=== PATIENT | male | born 1970 | race Caucasian/White ===

== ENCOUNTER 2018-06-06 17:28 | Emergency (ER) | payer OTHER ==
[2018-06-06 17:37] VITALS: BMI 33.7
[2018-06-06 17:38] VITALS: TEMP 98.3
--- NOTE | 2018-06-06 17:38 | ED PDOC ---
Arrival/HPI - General Time Seen by Provider: 06/06/18 17:29 Historian: EMS - History of Present Illness Narrative History of Present Illness (Text): 06/06/18 17:38 48 year old male, with questionable past medical history of seizure, presents to the ED via EMS s/p seizure prior to arrival. As per EMS, patient was reported to have a witnessed seizure at work when 911 was immediately called. Upon EMS arrival, patient was found to be in post-ictal state however was able ambulate to the stretcher. Patient reportedly experienced another episode of seizure en rout to the hospital, which lasted for about 30 seconds. Upon arrival to the ED, patient is unresponsive however responds and moves all extremities to painful stimuli. HPI and ROS limited secondary to patient's clinical presentation. Time/Duration: Prior to Arrival Symptom Onset: Gradual Symptom Course: Unchanged Activities at Onset: Light Context: Work Past Medical History - Provider Review Nursing Documentation Reviewed: Yes Family/Social History - Physician Review Nursing Documentation Reviewed: Yes Family/Social History: Unknown Family HX Allergies/Home Meds Allergies/Adverse Reactions: Allergies Unobtainable Allergy (Verified 06/06/18 17:37) Home Medications: Home Meds Medication Instructions Recorded Confirmed Lamotrigine [Lamictal] 200 mg PO BID 06/06/18 06/06/18 Levetiracetam [Keppra] 750 mg PO BID 06/06/18 06/06/18 Topiramate [Topamax] 300 mg PO BID 06/06/18 06/06/18 Review of Systems - Review of Systems Systems not reviewed;Unavailable: Acuity of Condition (Patient unresponsive) Neurological: Seizure Physical Exam Vital Signs Reviewed: Yes Temperature: Afebrile Blood Pressure: Normal Pulse: Tachycardic Respiratory Rate: Normal Pain Distress: None Mental Status: Positive for: Confused, other (Unresponsive) - Systems Exam Head: Present: Atraumatic, Normocephalic Pupils: Present: PERRL Extroacular Muscles: Present: EOMI Conjunctiva: Present: Normal Ears: Present: Normal, NORMAL TM Mouth: Present: Moist Mucous Membranes Pharnyx: Present: Normal. No: ERYTHEMA, EXUDATE Neck: Present: Normal Range of Motion. No: Meningeal Signs, MIDLINE TENDERNESS Respiratory/Chest: Present: Clear to Auscultation, Good Air Exchange. No: Respiratory Distress, Accessory Muscle Use Cardiovascular: Present: Normal S1, S2, Tachycardic. No: Murmurs Back: Present: Normal Inspection. No: CVA Tenderness, Midline Tenderness Upper Extremity: Present: Normal Inspection, Neurovascularly Intact. No: Cyanosis, Edema Lower Extremity: Present: Normal Inspection, Neurovascularly Intact. No: Edema Neurological: Present: Normal Sensory Function (Moves all extremities with pain stimuli), Other (Limited secondary to unresponsive state) Skin: Present: Warm, Dry, Normal Color. No: Rashes Psychiatric: Present: Other (Unresponsive) Medical Decision Making ED Course and Treatment: 06/06/18 17:52 Impression: 48 year old male presents to the ED for evaluation s/p seizure. ?history of seizures, no family bedside. Per EMS pt has medications in backpack. No seizure medications noted in backpack. ?Newonset seizure. No meningeal signs noted. Differential Diagnosis included but are not limited to: -- Seizure Plan: -- CT of Cervical Spine -- CT of Head -- EKG -- Labs -- Ativan -- Keppra -- IV Fluids -- Reassess and disposition Prior Visits: Notes and results from previous visits were reviewed. Progress Notes: 06/06/18 17:45 EKG reviewed, shows Sinus tachycardia at 129 bpm, No STEMI. 06/06/18 17:45 Patient experienced seizure at bedside. Ativan given. 06/06/18 17:[address] Nunez, who is aware and agrees with ED management plan, requests admission and MRI of the brain. 06/06/18 19:54 CT of Cervical Spine reviewed by radiologist, shows: 1. No acute cervical spine abnormality. 2. 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 06/06/18 19:54 CT of Head reviewed by radiologist, shows: No acute intracranial abnormality. No signs of DTs or withdrawal on exam. Etoh mildly elevated earlier. Ativan given earlier. appreciate consult w/ Dr. Chanel: to admit to hospitalist service 06/06/18 21:34 - RAD Interpretation Tube Sizer Operator: Radiologist - EKG Interpretation Interpreted by ED Physician: Yes Type: 12 lead EKG - Scribe Statement The provider has reviewed the documentation as recorded by the Scribe Cordell Torres. All medical record entries made by the Scribe were at my direction and persona lly dictated by me. I have reviewed the chart and agree that the record accurately reflects my personal performance of the history, physical exam, medical decision making, and the department course for this patient. I have also personally directed, reviewed, and agree with the discharge instructions and disposition. Disposition/Present on Arrival - Present on Arrival Any Indicators Present on Arrival: No - Disposition Have Diagnosis and Disposition been Completed?: Yes Diagnosis: Seizure Disposition Time: 20:14 Patient Problems: Current Active Problems Problem Status Onset Seizure Acute Condition: STABLE
[2018-06-06] MEDS ORDERED: Sodium Chloride 0.9% 1,000 ML IV ONE (17:39)
[2018-06-06] MEDS ORDERED: levETIRAcetam 1000mg/100ml NS 100 ML IV ONE (17:46)
[2018-06-06 17:47] LABS: BASO # 0.04 K/mm3 (0.0-2.0); BASO % 0.3 % (0.0-3.0); EOS # 0.1 (0.0-0.7); EOS % 0.9 % (1.5-5.0); HEMOGLOBIN 14.7 g/dL (14.0-18.0); LYMPH # 5.5 (1.2-3.4); LYMPH % 43.2 % (22.0-35.0); MEAN CELL VOLUME 95.9 fl (80.0-105.0); MEAN CORPUSCULAR HEMOGLOBIN 29.9 pg (25.0-35.0); MEAN CORPUSCULAR HGB CONC 31.2 g/dl (31.0-37.0); MEAN PLATELET VOLUME 10.5 fl (7.0-11.0); MONO # 0.8 (0.1-0.6); MONO % 6.1 % (1.0-6.0); RBC 4.91 10^6/uL (3.5-6.1); RED CELL DISTRIBUTION WIDTH 13.7 % (11.5-14.5); WHITE BLOOD COUNT 12.7 10^3/uL (4.5-11.0)
[2018-06-06 18:04] LABS: ALB/GLOB RATIO 1.3 (1.1-1.8); ALBUMIN 5.3 g/dL (3.0-4.8); ALT/SGPT 21 U/L (7-56); AST/SGOT 50 U/L (17-59); BLOOD UREA NITROGEN 14 mg/dL (7-21); CALCIUM 9.5 mg/dL (8.4-10.5); GFR NON-AFRICAN AMERICAN 50
[2018-06-06 18:15] LABS: TROPONIN I < 0.01 ng/mL
[2018-06-06 18:46] LABS: ACETAMINOPHEN < 10.0 ug/ml (10.0-20.0); SALICYLATE 2 mg/dL (2.0-20.0)
--- NOTE | 2018-06-06 18:48 | RAD ---
Date of service: 06/06/2018 HISTORY: seizure COMPARISON: No prior. FINDINGS: LUNGS: The lungs are well inflated. There is mild pulmonary venous congestion. PLEURA: No pleural effusions or pneumothorax. CARDIOVASCULAR: There is mild cardiomegaly. No aortic atherosclerotic calcifications present. OSSEOUS STRUCTURES: Within normal limits for the patient's age. VISUALIZED UPPER ABDOMEN: Normal. OTHER FINDINGS: None. IMPRESSION: No active pulmonary disease. Mild cardiomegaly and pulmonary venous congestion.
[2018-06-06 20:24] LABS: ARTERIAL BLOOD GAS HCO3 13.3 mmol/L (21-28); ARTERIAL BLOOD GAS O2 SAT 97.9 % (95-98); ARTERIAL BLOOD GAS PCO2 27 mm/Hg (35-45); ARTERIAL BLOOD GAS TCO2 14.1 mmol.L (22-28)
--- NOTE | 2018-06-06 20:50 | CP.PCM.HP ---
<Ibrahima Gant - Last Filed: 06/06/18 21:43> History of Present Illness - History of Present Illness History of Present Illness: Ibrahima Gant, PGY1 Medicine H&P for Dr. Chanel cc: "witnessed seizure" Patient is a 48 year old male, with PMHx of seizures who presented to the ED via EMS s/p witnessed seizure prior to arrival. As per EMS, patient was reported to have a witnessed seizure at work via co-worker when 911 was immediately called. Upon arrival to the ED, patient was found to be in post-ictal state. Patient experienced another episode of seizure en rout to the hospital, which lasted for about 30 seconds. Medical team evaluated patient in the ED. Patient is currently awake, alert, and oriented x3. He is still post-ictal and somnolent during interview, however he responds to questions appropriately. He does not remember how long he had the seizure for and no family member or associate was present at bedside to provide further history. Patient denies any recent sick contacts or travel history. He denies any cough, shortness of breath, abdominal pain, nausea, vomiting, diarrhea, fever, chills, headache, fatigue. He said he takes his seizure meds at home and is compliant with them. He did not bite his tongue or notice any loss of bowel or bladder. Patient does not know the name of his PMD. A full 12 point ROS was conducted and unremarkable except as stated above. PMD: unknown [facility] ([place] PMHx: seizures PSHx: denies Meds: lamictal 200mg PO BID, Keppra 750mg PO BID, Topamax 300mg PO BID Allergies: NKDA SocialHx: denies smoking, denies EtOH, denies illicit drug use. Lives in [place] and works in [place]. FamHx: non-contributory Present on Admission - Present on Admission Any Indicators Present on Admission: No Review of Systems - Review of Systems All systems: reviewed and no additional remarkable complaints except (as per HPI.) Past Patient History - Infectious Disease Hx of Infectious Diseases: None - Past Social History Smoking Status: Unknown If Ever Smoked - NEUROLOGICAL Hx Seizures: Yes - PSYCHIATRIC Hx Substance Use: No Meds Allergies/Adverse Reactions: Allergies Allergy/AdvReac Type Severity Reaction Status Date / Time Unobtainable Allergy Verified 06/06/18 17:37 Physical Exam - Constitutional Appears: No Acute Distress Additional comments: Somnolent on exam. - Head Exam Head Exam: ATRAUMATIC, NORMAL INSPECTION, NORMOCEPHALIC - Eye Exam Eye Exam: EOMI, Normal appearance, PERRL - ENT Exam ENT Exam: Mucous Membranes Moist, Normal Exam Additional comments: No evidence of tongue biting. - Neck Exam Neck exam: Positive for: Normal Inspection - Respiratory Exam Respiratory Exam: Clear to Auscultation Bilateral, NORMAL BREATHING PATTERN. absent: Rales, Rhonchi, Wheezes - Cardiovascular Exam Cardiovascular Exam: RRR, +S1, +S2 - GI/Abdominal Exam GI & Abdominal Exam: Normal Bowel Sounds, Soft. absent: Firm, Guarding, Hernia, Organomegaly, Rebound, Tenderness - Extremities Exam Extremities exam: Positive for: normal capillary refill, normal inspection, pedal pulses present - Neurological Exam Neurological exam: Alert, CN II-XII Intact, Oriented x3 - Psychiatric Exam Psychiatric exam: Normal Affect, Normal Mood - Skin Skin Exam: Dry, Intact, Normal Color, Warm Results - Vital Signs Recent Vital Signs: Last Vital Signs Temp 98.3 F 06/06/18 17:28 Pulse 98 H 06/06/18 20:32 Resp 20 06/06/18 20:32 BP 114/67 06/06/18 20:32 Pulse Ox 100 06/06/18 20:32 - Labs Result Diagrams: 06/06/18 17:30 06/06/18 17:30 Labs: Laboratory Results - last 24 hr 06/06/18 06/06/18 06/06/18 17:30 17:30 17:30 WBC 12.7 H RBC 4.91 Hgb 14.7 Hct 47.1 MCV 95.9 MCH 29.9 MCHC 31.2 RDW 13.7 Plt Count 289 MPV 10.5 Neut % (Auto) 49.5 L Lymph % (Auto) 43.2 H Starr % (Auto) 6.1 H Eos % (Auto) 0.9 L Baso % (Auto) 0.3 Lymph # (Auto) 5.5 H Starr # (Auto) 0.8 H Eos # (Auto) 0.1 Baso # (Auto) 0.04 Absolute Neuts (auto) 6.28 pCO2 pO2 HCO3 ABG pH ABG Total CO2 ABG O2 Saturation ABG Base Excess ABG Potassium Glucose Lactate FiO2 Crit Value Called To Crit Value Called By Blood Gas Notified Time Sodium 144 Potassium 4.1 Chloride 108 H Carbon Dioxide 5 L Anion Gap 35 H BUN 14 Creatinine 1.5 Est GFR ( Amer) > 60 Est GFR (Non-Af Amer) 50 Random Glucose 143 H Calcium 9.5 Magnesium 2.7 H Total Bilirubin 0.3 AST 50 ALT 21 Alkaline Phosphatase 86 Troponin I < 0.01 Total Protein 9.3 H Albumin 5.3 H Globulin 4.0 Albumin/Globulin Ratio 1.3 TSH 3rd Generation Arterial Blood Potassium Salicylates Acetaminophen Alcohol, Quantitative 13 H 06/06/18 06/06/18 06/06/18 17:30 17:30 20:16 WBC RBC Hgb Hct MCV MCH MCHC RDW Plt Count MPV Neut % (Auto) Lymph % (Auto) Starr % (Auto) Eos % (Auto) Baso % (Auto) Lymph # (Auto) Starr # (Auto) Eos # (Auto) Baso # (Auto) Absolute Neuts (auto) pCO2 27 L pO2 88.0 HCO3 13.3 L ABG pH 7.30 L ABG Total CO2 14.1 L ABG O2 Saturation 97.9 ABG Base Excess -11.5 L ABG Potassium 4.1 Glucose 99 Lactate 2.4 H FiO2 21.0 Crit Value Called To teletype clerk Crit Value Called By Jj Blood Gas Notified Time 2023 Sodium 139.0 Potassium Chloride 113.0 H Carbon Dioxide Anion Gap BUN Creatinine Est GFR ( Amer) Est GFR (Non-Af Amer) Random Glucose Calcium Magnesium Total Bilirubin AST ALT Alkaline Phosphatase Troponin I Total Protein Albumin Globulin Albumin/Globulin Ratio TSH 3rd Generation 3.64 Arterial Blood Potassium 4.1 Salicylates 2 Acetaminophen < 10.0 L Alcohol, Quantitative Assessment & Plan - Assessment and Plan (Free Text) Assessment: Patient is a 48 year old male with PMHx of seizures who presented to the ED via EMS s/p witnessed seizure prior to arrival. Patient will be admitted to telemetry for seizures. Plan: Seizures -Consider infectious etiology vs non-compliance vs substance abuse -Ativan 1mg IVP q4 prn -Keppra 750 mg IVPB q12 -Nursing swallow eval -Banana bag @ 150 cc/hr x1L; then c/w NS @ 150 cc/hr -seizure and aspiration precautions -Neurochecks -frequent vital signs q4 -CPK level -NPO -ABG -Neurology consulted (Dr. Nunez) -Urine drug screen -EtoH level 13 -Mildly elevated leukocytosis, wbc 12.7, likely reactive. Will repeat labs in morning to determine whether to initiate antibiotics if wbc trends up. -Head CT without contrast: no acute bleed -CT C-spine: no acute abnormality -CXR: no consolidation or infiltrate DVT ppx: scd Diet: NPO Dispo: Monitor patient on telemetry. Further recs from Neuro. Case was discussed and reviewed with Attending Physician, Dr. Chanel. <Lori Chanel - Last Filed: 06/06/18 22:07> Results - Vital Signs Recent Vital Signs: Last Vital Signs Temp 98.3 F 06/06/18 17:28 Pulse 98 H 06/06/18 20:32 Resp 20 06/06/18 20:32 BP 114/67 06/06/18 20:32 Pulse Ox 100 06/06/18 20:32 - Labs Result Diagrams: 06/06/18 17:30 06/06/18 17:30 Labs: Laboratory Results - last 24 hr 06/06/18 06/06/18 06/06/18 17:30 17:30 17:30 WBC 12.7 H RBC 4.91 Hgb 14.7 Hct 47.1 MCV 95.9 MCH 29.9 MCHC 31.2 RDW 13.7 Plt Count 289 MPV 10.5 Neut % (Auto) 49.5 L Lymph % (Auto) 43.2 H Starr % (Auto) 6.1 H Eos % (Auto) 0.9 L Baso % (Auto) 0.3 Lymph # (Auto) 5.5 H Starr # (Auto) 0.8 H Eos # (Auto) 0.1 Baso # (Auto) 0.04 Absolute Neuts (auto) 6.28 pCO2 pO2 HCO3 ABG pH ABG Total CO2 ABG O2 Saturation ABG Base Excess ABG Potassium Glucose Lactate FiO2 Crit Value Called To Crit Value Called By Blood Gas Notified Time Sodium 144 Potassium 4.1 Chloride 108 H Carbon Dioxide 5 L Anion Gap 35 H BUN 14 Creatinine 1.5 Est GFR ( Amer) > 60 Est GFR (Non-Af Amer) 50 Random Glucose 143 H Calcium 9.5 Magnesium 2.7 H Total Bilirubin 0.3 AST 50 ALT 21 Alkaline Phosphatase 86 Total Creatine Kinase Troponin I < 0.01 Total Protein 9.3 H Albumin 5.3 H Globulin 4.0 Albumin/Globulin Ratio 1.3 TSH 3rd Generation Arterial Blood Potassium Salicylates Acetaminophen Alcohol, Quantitative 13 H 06/06/18 06/06/18 06/06/18 17:30 17:30 19:00 WBC RBC Hgb Hct MCV MCH MCHC RDW Plt Count MPV Neut % (Auto) Lymph % (Auto) Starr % (Auto) Eos % (Auto) Baso % (Auto) Lymph # (Auto) Starr # (Auto) Eos # (Auto) Baso # (Auto) Absolute Neuts (auto) pCO2 pO2 HCO3 ABG pH ABG Total CO2 ABG O2 Saturation ABG Base Excess ABG Potassium Glucose Lactate FiO2 Crit Value Called To Crit Value Called By Blood Gas Notified Time Sodium Potassium Chloride Carbon Dioxide Anion Gap BUN Creatinine Est GFR ( Amer) Est GFR (Non-Af Amer) Random Glucose Calcium Magnesium Total Bilirubin AST ALT Alkaline Phosphatase Total Creatine Kinase 236 H Troponin I Total Protein Albumin Globulin Albumin/Globulin Ratio TSH 3rd Generation 3.64 Arterial Blood Potassium Salicylates 2 Acetaminophen < 10.0 L Alcohol, Quantitative 06/06/18 20:16 WBC RBC Hgb Hct MCV MCH MCHC RDW Plt Count MPV Neut % (Auto) Lymph % (Auto) Starr % (Auto) Eos % (Auto) Baso % (Auto) Lymph # (Auto) Starr # (Auto) Eos # (Auto) Baso # (Auto) Absolute Neuts (auto) pCO2 27 L pO2 88.0 HCO3 13.3 L ABG pH 7.30 L ABG Total CO2 14.1 L ABG O2 Saturation 97.9 ABG Base Excess -11.5 L ABG Potassium 4.1 Glucose 99 Lactate 2.4 H FiO2 21.0 Crit Value Called To teletype clerk Crit Value Called By J Blood Gas Notified Time 2023 Sodium 139.0 Potassium Chloride 113.0 H Carbon Dioxide Anion Gap BUN Creatinine Est GFR ( Amer) Est GFR (Non-Af Amer) Random Glucose Calcium Magnesium Total Bilirubin AST ALT Alkaline Phosphatase Total Creatine Kinase Troponin I Total Protein Albumin Globulin Albumin/Globulin Ratio [facility] 3rd Generation Arterial Blood Potassium 4.1 Salicylates Acetaminophen Alcohol, Quantitative Attending/Attestation - Attestation I have personally seen and examined this patient.: Yes I have fully participated in the care of the patient.: Yes I have reviewed all pertinent clinical information: Yes Notes (Text): 06/06/18 22:06 Patient was seen when he was in the bed # 3 in the ER. Medical record was reviewed. Agree with history, physical examination, assessment and plan.
[2018-06-06] MEDS ORDERED: Folic Acid 1 MG, Thiamine 100 MG, Multivitamin (MVI) 10 ML in Dextrose 5% In Water 1,00... IV SCH (21:45)
[2018-06-06 22:44] LABS: CK-MB 1.7 ng/mL (0.0-3.6)
[2018-06-06 23:13] LABS: BARBITURATES, UR NEGATIVE (NEGATIVE); BENZODIAZEPINES, UR NEGATIVE (NEGATIVE); OPIATES, UR NEGATIVE (NEGATIVE); PHENCYCLIDINE, UR NEGATIVE (NEGATIVE)
[2018-06-07 00:27] LABS: VENOUS BLOOD GAS BASE EXCESS -9.6 mmol/L (0.0-2.0); VENOUS BLOOD GAS PO2 62 mm/Hg (30-55); VENOUS BLOOD PH 7.27 (7.32-7.43)
[2018-06-07] MEDS ORDERED: Sodium Chloride 0.9% 1,000 ML IV SCH (04:00)
--- NOTE | 2018-06-07 06:49 | CP.PCM.PN ---
Subjective - Date & Time of Evaluation Date of Evaluation: 06/07/18 Time of Evaluation: 06:49 Objective - Vital Signs/Intake and Output Vital Signs (last 24 hours): Temp Pulse Resp BP Pulse Ox 98.3 F 72 18 134/76 98 06/06/18 17:28 06/07/18 06:44 06/07/18 06:44 06/07/18 06:44 06/07/18 06:44 - Medications Medications: Current Medications Levetiracetam 750 mg/ Sodium (Chloride) 107.5 mls @ 215 mls/hr IVPB Q12 OTONIEL Last Admin: 06/07/18 00:13 Dose: 215 mls/hr Sodium Chloride (Sodium Chloride 0.9%) 1,000 mls @ 150 mls/hr IV .[id number] OTONIEL Last Admin: 06/07/18 06:15 Dose: 150 mls/hr Lorazepam (Ativan) 1 mg IVP Q4 PRN; Protocol PRN Reason: Seizure activity - Labs Labs: 06/06/18 17:30 06/06/18 17:30
[2018-06-07 07:23] VITALS: RESP 20
[2018-06-07 07:46] LABS: HEMOGLOBIN 13.3 g/dL (14.0-18.0); MEAN CELL VOLUME 91.1 fl (80.0-105.0); MEAN CORPUSCULAR HEMOGLOBIN 29.6 pg (25.0-35.0); MEAN CORPUSCULAR HGB CONC 32.5 g/dl (31.0-37.0); MEAN PLATELET VOLUME 10.2 fl (7.0-11.0); RBC 4.49 10^6/uL (3.5-6.1); RED CELL DISTRIBUTION WIDTH 13.2 % (11.5-14.5); WHITE BLOOD COUNT 7.8 10^3/uL (4.5-11.0)
[2018-06-07 08:00] LABS: ALB/GLOB RATIO 1.2 (1.1-1.8); CALCIUM 8.8 mg/dL (8.4-10.5)
--- NOTE | 2018-06-07 08:17 | CT ---
Date of service: 06/06/2018 PROCEDURE: CT HEAD WITHOUT CONTRAST. HISTORY: seizure COMPARISON: None available. TECHNIQUE: Axial computed tomography images were obtained through the head/brain without intravenous contrast. Radiation dose: Total exam DLP = 1742.95 mGy-cm. This CT exam was performed using one or more of the following dose reduction techniques: Automated exposure control, adjustment of the mA and/or kV according to patient size, and/or use of iterative reconstruction technique. FINDINGS: HEMORRHAGE: No intracranial hemorrhage. BRAIN: Thomas-white matter differentiation is preserved. There is no mass, mass effect or abnormal extra-axial fluid collection. There is no territorial infarction. The midline sagittal structures are normal. VENTRICLES: The ventricles are normal in size, shape and configuration. CALVARIUM: There is no calvarial fracture or extracranial soft tissue swelling. PARANASAL SINUSES: Predominantly clear. MASTOID AIR CELLS: Predominantly clear. OTHER FINDINGS: None. IMPRESSION: No acute intracranial abnormality. A preliminary report was provided by [facility].
--- NOTE | 2018-06-07 08:49 | CARD ---
APPROVED REPORT Date of service: 06/06/2018 EKG Measurement Heart [id number] <Conclusion> Sinus tachycardia Otherwise normal ECG
--- NOTE | 2018-06-07 09:16 | CT ---
Date of service: 06/06/2018 PROCEDURE: CT Cervical Spine without contrast HISTORY: seizure COMPARISON: None available. TECHNIQUE: Axial computed tomography images were obtained of the cervical spine without the use of intravenous contrast. Coronal and sagittal reformatted images were created and reviewed. Radiation dose: Total exam DLP = 1340.31 mGy-cm. This CT exam was performed using one or more of the following dose reduction techniques: Automated exposure control, adjustment of the mA and/or kV according to patient size, and/or use of iterative reconstruction technique. FINDINGS: VERTEBRAE: Examination is of suboptimal diagnostic quality due to patient motion. There is normal alignment of the cervical vertebral bodies. There straightening of the cervical spine with loss normal cervical lordosis. No acute displaced fracture or traumatic anterior listhesis. The craniocervical junction is normal. The atlantoaxial joint is normal. DISCS/SPINAL CANAL/NEURAL FORAMINA: There is mild multilevel degenerative disc disease due to combination of disc osteophyte complexes, uncovertebral joint hypertrophy and multilevel facet arthropathy, worse at C5-6 with moderate right and mild left neural foraminal narrowing and mild spinal canal stenosis. PARASPINAL SOFT TISSUES: Unremarkable. OTHER FINDINGS: None. IMPRESSION: Suboptimal diagnostic quality due to patient motion. Allowing for this, no acute displaced fracture or spondylolisthesis. A preliminary report was provided by [facility].
--- NOTE | 2018-06-07 10:35 | CP.PCM.CON ---
History of Present Illness - History of Present Illness History of Present Illness: Neurology Consultation Note: Consult requested by Dr. Harris Mr. Barton is a 47-year-old man with a history of epilepsy (takes Keppra 1500 BID, Topamax 200 BID, Lamictal 300 BID), who had a seizure yesterday that was witnessed at work. EMS was called, and he had a subsequent seizure. He was post-ictal in the ED. CT scan of the head and cervical spine were normal. Today, the patient is completely back to baseline and has no focal deficits. He admitted that he missed all of his medications yesterday morning before work. Review of Systems - Constitutional Constitutional: As Per HPI - EENT Eyes: absent: As Per HPI, Blind Spots, Blurred Vision, Change in Vision, Decreased Night Vision, Diplopia, Discharge, Dry Eye, Exophthalmos, Floaters, Irritation, Itchy Eyes, Loss of Peripheral Vision, Pain, Photophobia, Requires Corrective Lenses, Sees Flashes, Spots in Vision, Tunnel Vision, Other Visual Disturbances, Loss of Vision, Other Ears: absent: As Per HPI, Decreased Hearing, Ear Discharge, Ear Pain, Tinnitus, Abnormal Hearing, Disequilibrium, Dizziness, Other Nose/Mouth/Throat: absent: As Per HPI, Epistaxis, Nasal Congestion, Nasal Discharge, Nasal Obstruction, Nasal Trauma, Nose Pain, Post Nasal Drip, Sinus Pain, Sinus Pressure, Bleeding Gums, Change in Voice, Dental Pain, Dry Mouth, Dysphagia, Halitosis, Hoarsness, Lip Swelling, Mouth Lesions, Mouth Pain, Odynophagia, Sore Throat, Throat Swelling, Tongue Swelling, Facial Pain, Neck Pain, Neck Mass, Other - Cardiovascular Cardiovascular: absent: As Per HPI, Acrocyanosis, Chest Pain, Chest Pain at Rest, Chest Pain with Activity, Claudication, Diaphoresis, Dyspnea, Dyspnea on Exertion, Edema, Irregular Heart Rhythm, Pain Radiating to Arm/Neck/Jaw, Leg Edema, Leg Ulcers, Lightheadedness, Orthopnea, Palpitations, Paroxysmal Nocturnal Dyspnea, Pedal Edema, Radiating Pain, Rapid Heart Rate, Slow Heart Rate, Syncope, Other - Respiratory Respiratory: absent: As Per HPI, Cough, Dyspnea, Hemoptysis, Dyspnea on Exertion, Wheezing, Snoring, Stridor, Pain on Inspiration, Chest Congestion, Excessive Mucous Production, Change in Mucous Color, Pain with Coughing, Other - Gastrointestinal Gastrointestinal: absent: As Per HPI, Abdominal Pain, Belching, Bloating, Change in Bowel Habits, Change in Stool Character, Coffee Ground Emesis, Constipation, Cramping, Diarrhea, Dyspepsia, Dysphagia, Early Satiety, Excessive Flatus, Fecal Incontinence, Heartburn, Hematemesis, Hematochezia, Loose Stools, Melena, Nausea, Odynophagia, Temesmus, Vomiting, Other - Musculoskeletal Musculoskeletal: absent: As Per HPI, Abnormal Gait, Arthralgias, Atrophy, Back Pain, Deformity, Joint Swelling, Limited Range of Motion, Loss of Height, Muscle Cramps, Muscle Weakness, Myalgias, Neck Pain, Numbness, Radiating Pain into Limb, Stiffness, Tingling, Other - Integumentary Integumentary: absent: As Per HPI, Acne, Alopecia, Bleeding Lesions, Change in Hair, Change in Nails, Change in Pigmentation, Changing Lesions, Dry Skin, Erythema, Furuncle, Hirsutism, Lesions, New Lesions, Non-Healing Lesions, Photosensitivity, Pruritus, Rash, Skin Pain, Skin Ulcer, Sores, Striae, Swelling, Unusual Bruising, Wounds, Jaundice, Other - Neurological Neurological: As Per HPI - Psychiatric Psychiatric: absent: As Per HPI, Abnormal Sleep Pattern, Anhedonia, Anxiety, Auditory Hallucinations, Behavioral Changes, Change in Appetite, Change in Libido, Confusion, Depression, Difficulty Concentrating, Hallucinations, Homicidal Ideation, Hopelessness, Irritability, Memory Loss, Mood Swings, Panic Attacks, Paranoia, Suicidal Ideation, Visual Hallucinations, Tactile Hallucinations, Other - Endocrine Endocrine: absent: As Per HPI, Change in Body Appearance, Change in Libido, Cold Intolorance, Deepening of Voice, Excessive Sweating, Fatigue, Flushing, Heat Intolorance, Increase in Ring/Shoe/Hat Size, Palpitations, Polydipsia, Polyphagia, Polyuria, Other - Hematologic/Lymphatic Hematologic: absent: As Per HPI, Easy Bleeding, Easy Bruising, Lymphadenopathy, Other Past Patient History - Infectious Disease Hx of Infectious Diseases: None - Past Social History Smoking Status: Unknown If Ever Smoked - NEUROLOGICAL Hx Seizures: Yes - PSYCHIATRIC Hx Substance Use: No Meds Allergies/Adverse Reactions: Allergies Allergy/AdvReac Type Severity Reaction Status Date / Time No Known Allergies Allergy Verified 06/07/18 04:05 - Medications Medications: Current Medications Levetiracetam 750 mg/ Sodium (Chloride) 107.5 mls @ 215 mls/hr IVPB Q12 [facility] Last Admin: 06/07/18 09:44 Dose: 215 mls/hr Sodium Chloride (Sodium Chloride 0.9%) 1,000 mls @ 150 mls/hr IV .[id number] [facility] Last Admin: 06/07/18 06:15 Dose: 150 mls/hr Lorazepam (Ativan) 1 mg IVP Q4 PRN; Protocol PRN Reason: Seizure activity Physical Exam - Constitutional Appears: Well - Head Exam Head Exam: ATRAUMATIC, NORMAL INSPECTION, NORMOCEPHALIC - Eye Exam Eye Exam: EOMI, Normal appearance, PERRL Pupil Exam: NORMAL ACCOMODATION, PERRL - ENT Exam ENT Exam: Mucous Membranes Moist, Normal Exam - Neck Exam Neck exam: Positive for: Normal Inspection - Respiratory Exam Respiratory Exam: Clear to Auscultation Bilateral, NORMAL BREATHING PATTERN - Cardiovascular Exam Cardiovascular Exam: REGULAR RHYTHM, +S1, +S2 - GI/Abdominal Exam GI & Abdominal Exam: Normal Bowel Sounds, Soft. absent: Tenderness - Extremities Exam Extremities exam: Positive for: normal inspection - Back Exam Back exam: NORMAL INSPECTION - Neurological Exam Neurological exam: Alert, CN II-XII Intact, Normal Gait, Oriented x3, Reflexes Normal - Psychiatric Exam Psychiatric exam: Normal Affect, Normal Mood - Skin Skin Exam: Dry, Intact, Normal Color, Warm Results - Vital Signs Recent Vital Signs: Last Vital Signs Temp 98.3 F 06/06/18 17:28 Pulse 76 06/07/18 07:22 Resp 20 06/07/18 07:22 BP 123/76 06/07/18 07:22 Pulse Ox 96 06/07/18 07:22 - Labs Result Diagrams: 06/07/18 07:40 06/07/18 07:40 Labs: Laboratory Results - last 24 hr 06/06/18 06/06/18 06/06/18 17:30 17:30 17:30 WBC 12.7 H RBC 4.91 Hgb 14.7 Hct 47.1 MCV 95.9 MCH 29.9 MCHC 31.2 RDW 13.7 Plt Count 289 MPV 10.5 Neut % (Auto) 49.5 L Lymph % (Auto) 43.2 H King % (Auto) 6.1 H Eos % (Auto) 0.9 L Baso % (Auto) 0.3 Lymph # (Auto) 5.5 H King # (Auto) 0.8 H Eos # (Auto) 0.1 Baso # (Auto) 0.04 Absolute Neuts (auto) 6.28 pCO2 pO2 HCO3 ABG pH ABG Total CO2 ABG O2 Saturation ABG Base Excess ABG Potassium VBG pH VBG pCO2 VBG HCO3 VBG Total CO2 VBG O2 Sat (Calc) VBG Base Excess VBG Potassium Glucose Lactate FiO2 Crit Value Called To Crit Value Called By Blood Gas Notified Time Sodium 144 Potassium 4.1 Chloride 108 H Carbon Dioxide 5 L Anion Gap 35 H BUN 14 Creatinine 1.5 Est GFR ( Amer) > 60 Est GFR (Non-Af Amer) 50 Random Glucose 143 H Calcium 9.5 Phosphorus Magnesium 2.7 H Total Bilirubin 0.3 AST 50 ALT 21 Alkaline Phosphatase 86 Total Creatine Kinase CK-MB (CK-2) CK-MB (CK-2) % Troponin I < 0.01 Total Protein 9.3 H Albumin 5.3 H Globulin 4.0 Albumin/Globulin Ratio 1.3 TSH 3rd Generation Arterial Blood Potassium Venous Blood Potassium Salicylates Urine Opiates Screen Urine Methadone Screen Acetaminophen Ur Barbiturates Screen Ur Phencyclidine Scrn Ur Amphetamines Screen U Benzodiazepines Scrn U Oth Cocaine Metabols U Cannabinoids Screen Alcohol, Quantitative 13 H 06/06/18 06/06/18 06/06/18 17:30 17:30 19:00 WBC RBC Hgb Hct MCV MCH MCHC RDW Plt Count MPV Neut % (Auto) Lymph % (Auto) King % (Auto) Eos % (Auto) Baso % (Auto) Lymph # (Auto) King # (Auto) Eos # (Auto) Baso # (Auto) Absolute Neuts (auto) pCO2 pO2 HCO3 ABG pH ABG Total CO2 ABG O2 Saturation ABG Base Excess ABG Potassium VBG pH VBG pCO2 VBG HCO3 VBG Total CO2 VBG O2 Sat (Calc) VBG Base Excess VBG Potassium Glucose Lactate FiO2 Crit Value Called To Crit Value Called By Blood Gas Notified Time Sodium Potassium Chloride Carbon Dioxide Anion Gap BUN Creatinine Est GFR ( Amer) Est GFR (Non-Af Amer) Random Glucose Calcium Phosphorus Magnesium Total Bilirubin AST ALT Alkaline Phosphatase Total Creatine Kinase 236 H CK-MB (CK-2) 1.7 CK-MB (CK-2) % Cancelled Troponin I Total Protein Albumin Globulin Albumin/Globulin Ratio TSH 3rd Generation 3.64 Arterial Blood Potassium Venous Blood Potassium Salicylates 2 Urine Opiates Screen Urine Methadone Screen Acetaminophen < 10.0 L Ur Barbiturates Screen Ur Phencyclidine Scrn Ur Amphetamines Screen U Benzodiazepines Scrn U Oth Cocaine Metabols U Cannabinoids Screen Alcohol, Quantitative 06/06/18 06/06/18 06/06/18 20:16 22:28 23:40 WBC RBC Hgb Hct MCV MCH MCHC RDW Plt Count MPV Neut % (Auto) Lymph % (Auto) King % (Auto) Eos % (Auto) Baso % (Auto) Lymph # (Auto) King # (Auto) Eos # (Auto) Baso # (Auto) Absolute Neuts (auto) pCO2 27 L pO2 88.0 62 H HCO3 13.3 L ABG pH 7.30 L ABG Total CO2 14.1 L ABG O2 Saturation 97.9 ABG Base Excess -11.5 L ABG Potassium 4.1 VBG pH 7.27 L VBG pCO2 36.0 L VBG HCO3 16.5 L VBG Total CO2 17.6 L VBG O2 Sat (Calc) 93.2 H VBG Base Excess -9.6 L VBG Potassium 3.8 Glucose 99 120 H Lactate 2.4 H 1.6 FiO2 21.0 21.0 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 Crit Value Called By Jj Blood Gas Notified Time 2023 Sodium 139.0 139.0 Potassium Chloride 113.0 H 110.0 H Carbon Dioxide Anion Gap BUN Creatinine Est GFR ( Amer) Est GFR (Non-Af Amer) Random Glucose Calcium Phosphorus Magnesium Total Bilirubin AST ALT Alkaline Phosphatase Total Creatine Kinase CK-MB (CK-2) CK-MB (CK-2) % Troponin I Total Protein Albumin Globulin Albumin/Globulin Ratio TSH 3rd Generation Arterial Blood Potassium 4.1 Venous Blood Potassium 3.8 Salicylates Urine Opiates Screen Negative Urine Methadone Screen Negative Acetaminophen Ur Barbiturates Screen Negative Ur Phencyclidine Scrn Negative Ur Amphetamines Screen Negative U Benzodiazepines Scrn Negative U Oth Cocaine Metabols Negative U Cannabinoids Screen Negative Alcohol, Quantitative 06/07/18 06/07/18 07:40 07:40 WBC 7.8 D RBC 4.49 Hgb 13.3 L Hct 40.9 L MCV 91.1 D MCH 29.6 MCHC 32.5 RDW 13.2 Plt Count 212 MPV 10.2 Neut % (Auto) Lymph % (Auto) King % (Auto) Eos % (Auto) Baso % (Auto) Lymph # (Auto) King # (Auto) Eos # (Auto) Baso # (Auto) Absolute Neuts (auto) pCO2 pO2 HCO3 ABG pH ABG Total CO2 ABG O2 Saturation ABG Base Excess ABG Potassium VBG pH VBG pCO2 VBG HCO3 VBG Total CO2 VBG O2 Sat (Calc) VBG Base Excess VBG Potassium Glucose Lactate FiO2 Crit Value Called To Crit Value Called By Blood Gas Notified Time Sodium 140 Potassium 4.0 Chloride 115 H Carbon Dioxide 17 L Anion Gap 12 BUN 19 Creatinine 2.3 H Est GFR ( Amer) 37 Est GFR (Non-Af Amer) 31 Random Glucose 92 Calcium 8.8 Phosphorus 3.2 Magnesium 2.9 H Total Bilirubin 0.7 AST 32 ALT 24 Alkaline Phosphatase 75 Total Creatine Kinase CK-MB (CK-2) CK-MB (CK-2) % Troponin I Total Protein 7.2 Albumin 4.0 Globulin 3.3 Albumin/Globulin Ratio 1.2 TSH 3rd Generation Arterial Blood Potassium Venous Blood Potassium Salicylates Urine Opiates Screen Urine Methadone Screen Acetaminophen Ur Barbiturates Screen Ur Phencyclidine Scrn Ur Amphetamines Screen U Benzodiazepines Scrn U Oth Cocaine Metabols U Cannabinoids Screen Alcohol, Quantitative Assessment & Plan (1) Seizure Assessment and Plan: Likely due to not taking his morning medications. I recommend giving the patient Keppra 1500 mg, Lamictal 300 mg and Topamax 200 mg now and the patient can be discharged home to take his night time medications today on his own. He can follow up with his neurologist if needed. No further recommendations at this time. Thank you for this consultation. Status: Acute
[2018-06-07 12:24] VITALS: BP 121/79; PULSE 78; O2SAT 98
--- NOTE | 2018-06-07 12:38 | CP.PCM.DIS ---
<Yordy Saeed - Last Filed: 06/07/18 17:49> Provider - Provider Date of Admission: 06/06/18 20:12 Attending physician: Kostas Harris MD Consults: 06/06/18 21:34 Physician Consult Routine Comment: Consulting Provider: Cristopher Nunez Consulting Physician: Cristopher Nunez Reason for Consult: seizures Time Spent in preparation of Discharge (in minutes): 45 Diagnosis - Discharge Diagnosis (1) Seizure Status: Chronic Hospital Course - Lab Results Lab Results: Most Recent Lab Values WBC 7.8 10^3/uL (4.5-11.0) D 06/07/18 07:40 RBC 4.49 10^6/uL (3.5-6.1) 06/07/18 07:40 Hgb 13.3 g/dL (14.0-18.0) L 06/07/18 07:40 Hct 40.9 % (42.0-52.0) L 06/07/18 07:40 MCV 91.1 fl (80.0-105.0) D 06/07/18 07:40 MCH 29.6 pg (25.0-35.0) 06/07/18 07:40 MCHC 32.5 g/dl (31.0-37.0) 06/07/18 07:40 RDW 13.2 % (11.5-14.5) 06/07/18 07:40 Plt Count 212 10^3/uL (120.0-450.0) 06/07/18 07:40 MPV 10.2 fl (7.0-11.0) 06/07/18 07:40 Neut % (Auto) 49.5 % (50.0-68.0) L 06/06/18 17:30 Lymph % (Auto) 43.2 % (22.0-35.0) H 06/06/18 17:30 [place] % (Auto) 6.1 % (1.0-6.0) H 06/06/18 17:30 Eos % (Auto) 0.9 % (1.5-5.0) L 06/06/18 17:30 Baso % (Auto) 0.3 % (0.0-3.0) 06/06/18 17:30 Lymph # (Auto) 5.5 (1.2-3.4) H 06/06/18 17:30 [place] # (Auto) 0.8 (0.1-0.6) H 06/06/18 17:30 Eos # (Auto) 0.1 (0.0-0.7) 06/06/18 17:30 Baso # (Auto) 0.04 K/mm3 (0.0-2.0) 06/06/18 17:30 Absolute Neuts (auto) 6.28 (1.4-6.5) 06/06/18 17:30 pCO2 27 mm/Hg (35-45) L 06/06/18 20:16 pO2 62 mm/Hg (30-55) H 06/06/18 23:40 HCO3 13.3 mmol/L (21-28) L 06/06/18 20:16 ABG pH 7.30 (7.35-7.45) L 06/06/18 20:16 ABG Total CO2 14.1 mmol.L (22-28) L 06/06/18 20:16 ABG O2 Saturation 97.9 % (95-98) 06/06/18 20:16 ABG Base Excess -11.5 mmol/L (-2.0-3.0) L 06/06/18 20:16 ABG Potassium 4.1 mmol/L (3.6-5.2) 06/06/18 20:16 VBG pH 7.27 (7.32-7.43) L 06/06/18 23:40 VBG pCO2 36.0 (40-60) L 06/06/18 23:40 VBG HCO3 16.5 mmol/l (21-28) L 06/06/18 23:40 VBG Total CO2 17.6 mmol.L (22-28) L 06/06/18 23:40 VBG O2 Sat (Calc) 93.2 % (40-65) H 06/06/18 23:40 VBG Base Excess -9.6 mmol/L (0.0-2.0) L 06/06/18 23:40 VBG Potassium 3.8 mmol/L (3.6-5.2) 06/06/18 23:40 Sodium 139.0 mmol/L (132-148) 06/06/18 23:40 Chloride 110.0 mmol/L (98-107) H 06/06/18 23:40 Glucose 120 mg/dl (75-110) H 06/06/18 23:40 Lactate 1.6 mmol/L (0.7-2.1) 06/06/18 23:40 FiO2 21.0 % 06/06/18 23:40 Crit Value Called To [place]o cordoba 06/06/18 20:16 Crit Value Called By Jeff 06/06/18 20:16 Blood Gas Notified Time 202306/06/18 20:16 Sodium 140 mmol/L (132-148) 06/07/18 07:40 Potassium 4.0 mmol/L (3.6-5.0) 06/07/18 07:40 Chloride 115 mmol/L (98-107) H 06/07/18 07:40 Carbon Dioxide 17 mmol/L (21-33) L 06/07/18 07:40 Anion Gap 12 (10-20) 06/07/18 07:40 BUN 19 mg/dL (7-21) 06/07/18 07:40 Creatinine 2.3 mg/dl (0.8-1.5) H 06/07/18 07:40 Est GFR ( Amer) 37 06/07/18 07:40 Est GFR (Non-Af Amer) 31 06/07/18 07:40 Random Glucose 92 mg/dL (70-110) 06/07/18 07:40 Calcium 8.8 mg/dL (8.4-10.5) 06/07/18 07:40 Phosphorus 3.2 mg/dL (2.5-4.5) 06/07/18 07:40 Magnesium 2.9 mg/dL (1.7-2.2) H 06/07/18 07:40 Total Bilirubin 0.7 mg/dL (0.2-1.3) 06/07/18 07:40 AST 32 U/L (17-59) 06/07/18 07:40 ALT 24 U/L (7-56) 06/07/18 07:40 Alkaline Phosphatase 75 U/L (38-126) 06/07/18 07:40 Total Creatine Kinase 236 U/L (35-230) H 06/06/18 19:00 CK-MB (CK-2) 1.7 ng/mL (0.0-3.6) 06/06/18 19:00 CK-MB (CK-2) % Cancelled 06/06/18 19:00 Troponin I < 0.01 ng/mL 06/06/18 17:30 Total Protein 7.2 g/dL (5.8-8.3) 06/07/18 07:40 Albumin 4.0 g/dL (3.0-4.8) 06/07/18 07:40 Globulin 3.3 gm/dL 06/07/18 07:40 Albumin/Globulin Ratio 1.2 (1.1-1.8) 06/07/18 07:40 TSH 3rd Generation 3.64 mIU/mL (0.46-4.68) 06/06/18 17:30 Arterial Blood Potassium 4.1 mmol/L (3.6-5.2) 06/06/18 20:16 Venous Blood Potassium 3.8 mmol/L (3.6-5.2) 06/06/18 23:40 Salicylates 2 mg/dL (2.0-20.0) 06/06/18 17:30 Urine Opiates Screen Negative (NEGATIVE) 06/06/18 22:28 Urine Methadone Screen Negative (NEGATIVE) 06/06/18 22:28 Acetaminophen < 10.0 ug/ml (10.0-20.0) L 06/06/18 17:30 Ur Barbiturates Screen Negative (NEGATIVE) 06/06/18 22:28 Ur Phencyclidine Scrn Negative (NEGATIVE) 06/06/18 22:28 Ur Amphetamines Screen Negative (NEGATIVE) 06/06/18 22:28 U Benzodiazepines Scrn Negative (NEGATIVE) 06/06/18 22:28 U Oth Cocaine Metabols Negative (NEGATIVE) 06/06/18 22:28 U Cannabinoids Screen Negative (NEGATIVE) 06/06/18 22:28 Alcohol, Quantitative 13 mg/dL (0-10) H 06/06/18 17:30 - Hospital Course Hospital Course: Patient is a 48 year old male, with PMHx of seizures who presented to the ED via EMS s/p witnessed seizure prior to arrival. As per EMS, patient was reported to have a witnessed seizure at work via co-worker when 911 was immediately called. Upon arrival to the ED, patient was found to be in post-ictal state. Patient states that he did not take his antiseizure medications the day of the incident. Over the course of is stay, he was treated with Keppra, Aivan, and IV fluids. Head CT and Cervical spine CT showed no acute findings. Neurology, Dr. Nunez was consulted and states that his seizure episode most likely caused due to patient not taking his medications. Patient was instructed to resume his home medications and follow up with his neurologist. Patient educated to be compliant with his seizure medications to avoid future episodes. Patient is medically optimized for discharge. Discharge instructions: 1. Please continue taking your home medications: Lamictal, Keppra, and Topamax for your seizures. 2. You had a seizure likely because you forgot to take your medications. It is important to take your medications daily to avoid future seizure episodes. 3. Follow up with your Neurologist as needed in 3-4 weeks. 5. Follow up in the [facility] to see a primary care doctor as needed in 3-4 weeks. 6. Return to the emergency room for worsening or newly concerning symptoms. Discharge Exam - Head Exam Head Exam: ATRAUMATIC, NORMAL INSPECTION, NORMOCEPHALIC - Additional Findings Additional findings: - Constitutional Appears: No Acute Distress - Head Exam Head Exam: ATRAUMATIC, NORMAL INSPECTION, NORMOCEPHALIC - Eye Exam Eye Exam: EOMI, Normal appearance, PERRL - ENT Exam ENT Exam: Mucous Membranes Moist, Normal Exam Additional comments: No evidence of tongue biting. - Neck Exam Neck exam: Positive for: Normal Inspection - Respiratory Exam Respiratory Exam: Clear to Auscultation Bilateral, NORMAL BREATHING PATTERN. absent: Rales, Rhonchi, Wheezes - Cardiovascular Exam Cardiovascular Exam: RRR, +S1, +S2 - GI/Abdominal Exam GI & Abdominal Exam: Normal Bowel Sounds, Soft. absent: Firm, Guarding, Hernia, Organomegaly, Rebound, Tenderness - Extremities Exam Extremities exam: Positive for: normal capillary refill, normal inspection, pedal pulses present - Neurological Exam Neurological exam: Alert, CN II-XII Intact, Oriented x3 - Psychiatric Exam Psychiatric exam: Normal Affect, Normal Mood - Skin Skin Exam: Dry, Intact, Normal Color, Warm Discharge Plan - Follow Up Plan Condition: STABLE Disposition: HOME/ ROUTINE Additional Instructions: 1. Please continue taking your home medications: Lamictal, Keppra, and Topamax for your seizures. 2. You had a seizure likely because you forgot to take your medications. It is important to take your medications daily to avoid future seizure episodes. 3. Follow up with your Neurologist as needed in 3-4 weeks. 5. Follow up in the [facility] clinic to see a primary care doctor as needed in 3-4 weeks. 6. Return to the emergency room for worsening or newly concerning symptoms. Referrals: Lexie Gómez MD [Medical Doctor] - <Kostas Harris - Last Filed: 06/07/18 19:54> Provider - Provider Consults: 06/06/18 21:34 Physician Consult Routine Comment: Consulting Provider: Cristopher Nunez Consulting Physician: Cristopher Nunez Reason for Consult: seizures Hospital Course - Lab Results Lab Results: Most Recent Lab Values WBC 7.8 10^3/uL (4.5-11.0) D 06/07/18 07:40 RBC 4.49 10^6/uL (3.5-6.1) 06/07/18 07:40 Hgb 13.3 g/dL (14.0-18.0) L 06/07/18 07:40 Hct 40.9 % (42.0-52.0) L 06/07/18 07:40 MCV 91.1 fl (80.0-105.0) D 06/07/18 07:40 MCH 29.6 pg (25.0-35.0) 06/07/18 07:40 MCHC 32.5 g/dl (31.0-37.0) 06/07/18 07:40 RDW 13.2 % (11.5-14.5) 06/07/18 07:40 Plt Count 212 10^3/uL (120.0-450.0) 06/07/18 07:40 MPV 10.2 fl (7.0-11.0) 06/07/18 07:40 Neut % (Auto) 49.5 % (50.0-68.0) L 06/06/18 17:30 Lymph % (Auto) 43.2 % (22.0-35.0) H 06/06/18 17:30 [place] % (Auto) 6.1 % (1.0-6.0) H 06/06/18 17:30 Eos % (Auto) 0.9 % (1.5-5.0) L 06/06/18 17:30 Baso % (Auto) 0.3 % (0.0-3.0) 06/06/18 17:30 Lymph # (Auto) 5.5 (1.2-3.4) H 06/06/18 17:30 [place] # (Auto) 0.8 (0.1-0.6) H 06/06/18 17:30 Eos # (Auto) 0.1 (0.0-0.7) 06/06/18 17:30 Baso # (Auto) 0.04 K/mm3 (0.0-2.0) 06/06/18 17:30 Absolute Neuts (auto) 6.28 (1.4-6.5) 06/06/18 17:30 pCO2 27 mm/Hg (35-45) L 06/06/18 20:16 pO2 62 mm/Hg (30-55) H 06/06/18 23:40 HCO3 13.3 mmol/L (21-28) L 06/06/18 20:16 ABG pH 7.30 (7.35-7.45) L 06/06/18 20:16 ABG Total CO2 14.1 mmol.L (22-28) L 06/06/18 20:16 ABG O2 Saturation 97.9 % (95-98) 06/06/18 20:16 ABG Base Excess -11.5 mmol/L (-2.0-3.0) L 06/06/18 20:16 ABG Potassium 4.1 mmol/L (3.6-5.2) 06/06/18 20:16 VBG pH 7.27 (7.32-7.43) L 06/06/18 23:40 VBG pCO2 36.0 (40-60) L 06/06/18 23:40 VBG HCO3 16.5 mmol/l (21-28) L 06/06/18 23:40 VBG Total CO2 17.6 mmol.L (22-28) L 06/06/18 23:40 VBG O2 Sat (Calc) 93.2 % (40-65) H 06/06/18 23:40 VBG Base Excess -9.6 mmol/L (0.0-2.0) L 06/06/18 23:40 VBG Potassium 3.8 mmol/L (3.6-5.2) 06/06/18 23:40 Sodium 139.0 mmol/L (132-148) 06/06/18 23:40 Chloride 110.0 mmol/L (98-107) H 06/06/18 23:40 Glucose 120 mg/dl (75-110) H 06/06/18 23:40 Lactate 1.6 mmol/L (0.7-2.1) 06/06/18 23:40 FiO2 21.0 % 06/06/18 23:40 Crit Value Called To composition teacher 06/06/18 20:16 Crit Value Called By Jeff 06/06/18 20:16 Blood Gas Notified Time 202306/06/18 20:16 Sodium 140 mmol/L (132-148) 06/07/18 07:40 Potassium 4.0 mmol/L (3.6-5.0) 06/07/18 07:40 Chloride 115 mmol/L (98-107) H 06/07/18 07:40 Carbon Dioxide 17 mmol/L (21-33) L 06/07/18 07:40 Anion Gap 12 (10-20) 06/07/18 07:40 BUN 19 mg/dL (7-21) 06/07/18 07:40 Creatinine 2.3 mg/dl (0.8-1.5) H 06/07/18 07:40 Est GFR ( Amer) 37 06/07/18 07:40 Est GFR (Non-Af Amer) 31 06/07/18 07:40 Random Glucose 92 mg/dL (70-110) 06/07/18 07:40 Calcium 8.8 mg/dL (8.4-10.5) 06/07/18 07:40 Phosphorus 3.2 mg/dL (2.5-4.5) 06/07/18 07:40 Magnesium 2.9 mg/dL (1.7-2.2) H 06/07/18 07:40 Total Bilirubin 0.7 mg/dL (0.2-1.3) 06/07/18 07:40 AST 32 U/L (17-59) 06/07/18 07:40 ALT 24 U/L (7-56) 06/07/18 07:40 Alkaline Phosphatase 75 U/L (38-126) 06/07/18 07:40 Total Creatine Kinase 236 U/L (35-230) H 06/06/18 19:00 CK-MB (CK-2) 1.7 ng/mL (0.0-3.6) 06/06/18 19:00 CK-MB (CK-2) % Cancelled 06/06/18 19:00 Troponin I < 0.01 ng/mL 06/06/18 17:30 Total Protein 7.2 g/dL (5.8-8.3) 06/07/18 07:40 Albumin 4.0 g/dL (3.0-4.8) 06/07/18 07:40 Globulin 3.3 gm/dL 06/07/18 07:40 Albumin/Globulin Ratio 1.2 (1.1-1.8) 06/07/18 07:40 TSH 3rd Generation 3.64 mIU/mL (0.46-4.68) 06/06/18 17:30 Arterial Blood Potassium 4.1 mmol/L (3.6-5.2) 06/06/18 20:16 Venous Blood Potassium 3.8 mmol/L (3.6-5.2) 06/06/18 23:40 Salicylates 2 mg/dL (2.0-20.0) 06/06/18 17:30 Urine Opiates Screen Negative (NEGATIVE) 06/06/18 22:28 Urine Methadone Screen Negative (NEGATIVE) 06/06/18 22:28 Acetaminophen < 10.0 ug/ml (10.0-20.0) L 06/06/18 17:30 Ur Barbiturates Screen Negative (NEGATIVE) 06/06/18 22:28 Ur Phencyclidine Scrn Negative (NEGATIVE) 06/06/18 22:28 Ur Amphetamines Screen Negative (NEGATIVE) 06/06/18 22:28 U Benzodiazepines Scrn Negative (NEGATIVE) 06/06/18 22:28 U Oth Cocaine Metabols Negative (NEGATIVE) 06/06/18 22:28 U Cannabinoids Screen Negative (NEGATIVE) 06/06/18 22:28 Alcohol, Quantitative 13 mg/dL (0-10) H 06/06/18 17:30 Attending/Attestation - Attestation I have personally seen and examined this patient.: Yes I have fully participated in the care of the patient.: Yes I have reviewed all pertinent clinical information, including history, physical exam and plan: Yes
== END 2018-06-07 13:41 | disposition home or self-care (01) ==
LOC: ED 17:28 → UNDOADMIN 20:12 → ERH 20:12 → EDBD 20:12 → ERH 06-07 03:51
DX: R56.9 Unspecified convulsions (principal)
CPT/HCPCS: 70450; 71045; 72125; 80053; 80320; 80324; 80329; 80345; 80346; 80349; 80353; 80358; 80361; 82550; 82553; 82803; 83735; 83992; 84100; 84443; 84484; 85025; 85027; 93005; 96361; 96365; 96366; 96367; 96368; 96375; 99285; J1953; J2060; J3411; J7030; J7070